=== PATIENT | female | born 1960 | race Native Hawaiian/Other Pacific Islander ===

== ENCOUNTER 2018-04-28 23:22 | Emergency (ER) | payer OTHER ==
[~2018-04-28] VITALS: Ht 157.5 cm; Wt 99.8 kg
[2018-04-28 23:45] LABS: PLATELET COUNT 305 K/uL (152-353)
[2018-04-29 00:29] VITALS: BP 184/98; TEMP 98.1
[2018-04-29] MEDS ORDERED: AMLO2.5T PO (01:34)
[2018-04-29] MEDS ORDERED: ATOR20TA2 PO (01:41)
[2018-04-29] MEDS ORDERED: INSUINJP SC (01:45)
[2018-04-29] MEDS ORDERED: UNITH DIRECT100 MCG PO (01:47)
[2018-04-29] MEDS ORDERED: MONT10TA PO (01:49)
[2018-04-29] MEDS ORDERED: PANTOPRAZOLE SO40 M1 PO (01:52)
[2018-04-29] MEDS ORDERED: VENLAFAXINE75 M2 PO (01:54)
[2018-04-29] MEDS ORDERED: ALLO100T22 PO (01:59)
[2018-04-29] MEDS ORDERED: BUDE1AER5 INH (02:02)
[2018-04-29] MEDS ORDERED: NITR100C56 PO (02:04)
[2018-04-29] MEDS ORDERED: METO-837 PO (02:06)
[2018-04-29] MEDS ORDERED: NOVOLIN R100 UNIT/1 SC (02:16)
[2018-04-29] MEDS ORDERED: ALBUTEROL0.083 % PO (02:20)
[2018-04-29] MEDS ORDERED: ALBUTEROL0.083 % INH (02:24)
[2018-04-29] MEDS ORDERED: HALO5INJ3 IM (02:32)
[2018-04-29] MEDS ORDERED: ENEMA RE (02:39)
[2018-04-29] MEDS ORDERED: TYLENOL325 MG PO (02:41)
== END 2018-04-29 00:40 | disposition other institution (70) ==
LOC: ED 23:22
PROVIDERS: Internal Medicine
DX: R45.851 Suicidal ideations (principal); F32.89 Other specified depressive episodes; E11.9 Type 2 diabetes mellitus without complications; I10 Essential (primary) hypertension; Z04.6 Encounter for general psychiatric examination, requested by authority
CPT/HCPCS: 36415; 80053; 85027; 93005; 99285